=== PATIENT | male | born 1990 | race Caucasian/White ===

== ENCOUNTER 2019-05-13 20:30 | Emergency (ER) | payer OTHER ==
[~2019-05-13] VITALS: Ht 193 cm; Wt 99.8 kg
--- NOTE | 2019-05-13 20:30 | NUR ---
PT BIB [facility], PREBOOK. TAKEN TO CHAIR E
[2019-05-13 20:31] VITALS: BP 143/75
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
--- NOTE | 2019-05-13 20:44 | NUR ---
Dr. Almaraz examining patient.
[2019-05-13 20:53] VITALS: BP 143/75
--- NOTE | 2019-05-13 20:54 | NUR ---
Patient discharged with v/s stable. Written and verbal after care instructions given and explained. Patient verbalized understanding. Escorted by [facility] in custody, ambulatory with steady gait. All questions addressed prior to discharge. Advised to follow up with PMD.
== END 2019-05-13 20:54 ==
LOC: MED 20:30
DX: Z02.89 Encounter for other administrative examinations (principal); Z90.49 Acquired absence of other specified parts of digestive tract; V89.2XXA Person injured in unspecified motor-vehicle accident, traffic, initial encounter; Y93.89 Activity, other specified; Y92.89 Other specified places as the place of occurrence of the external cause; Y99.8 Other external cause status
CPT/HCPCS: 99283